=== PATIENT | female | born 1975 | race Caucasian/White ===

== ENCOUNTER 2017-01-18 22:14 | Emergency (ER) | payer OTHER ==
[~2017-01-18] VITALS: Ht 165.1 cm; Wt 83.9 kg
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
[~2017-01-18 22:14] MED LIST: A/B OTIC DROPS; AMOXICILLIN PO; AMOXICILLIN500 M1 PO; AUGMENTIN PO; BACTRIM DS TABL1 TA1 PO; DEBROX15 ML OT; DIAZEPAM PO; DICLOFENAC SODI50 MG PO; FLEXERIL10 MG PO; FLOXIN OTIC5 ML AS; IBUPROFEN PO; IBUPROFEN800 MG PO; KLONOPIN PO; LORTAB 10/500 T1 TAB PO; MEDROL PO; MUCINEX DM1 TAB.SR . PO; NAPROSYN500 MG PO; NO MEDICATIONS; VICODIN 5/1 TAB 5/50 PO; VOLTAREN75 MG PO
[2017-01-19 01:32] LABS: URINE SOURCE CLEAN CATCH
[2017-01-19 02:16] LABS: URINE APPEARANCE TURBID; URINE BILIRUBIN NEG (NEG); URINE BLOOD NEG (NEG); URINE COLOR YELLOW; URINE GLUCOSE NEG (NEG); URINE KETONE NEG (NEG); URINE LEUKOCYTE ESTERASE 2+ (NEG); URINE NITRATE POS (NEG); URINE PROTEIN NEG (NEG); URINE SPECIFIC GRAVITY 1.016 (1.003-1.035)
[2017-01-19 02:20] LABS: CULTURE INDICATED? YES; URINE BACTERIA AUWI 4+ (NEGATIVE); URINE SQUAMOUS EPITHELIAL CELL FEW /[HPF]; UWBCS1 AUWI 25-50 (0-5)
== END 2017-01-19 02:48 | disposition home or self-care (01) ==
LOC: CFTX 22:14 → CED 22:14 → CFTX 23:59
PROVIDERS: Nurse Practitioner
DX: S39.012A Strain of muscle, fascia and tendon of lower back, initial encounter (principal); S29.012A Strain of muscle and tendon of back wall of thorax, initial encounter; S16.1XXA Strain of muscle, fascia and tendon at neck level, initial encounter; N39.0 Urinary tract infection, site not specified; Z98.51 Tubal ligation status; V43.52XA Car driver injured in collision with other type car in traffic accident, initial encounter; Y92.410 Unspecified street and highway as the place of occurrence of the external cause
CPT/HCPCS: 74176; 81003; 84703; 87086; 87088; 87186; 96372; 99284; J1885